=== PATIENT | female | born 1955 | race African-American/Black ===

== ENCOUNTER 2018-05-31 08:51 | Outpatient (CLI) | payer MEDICARE ==
[2018-05-31 09:28] LABS: ALT (SGPT) 14 U/L (8-55); AST (SGOT) 21 U/L (5-34); Alkaline Phosphatase 102 U/L (40-150); Anion Gap 13 mmol/L (10-20); BUN (Urea Nitrogen) 13 mg/dL (9.8-20.1); Bilirubin, Total 0.6 mg/dL (0.2-1.2); Calc. Creatinine Clearance 0 mL/min (70-130); Calcium 9.7 mg/dL (7.8-10.44); Carbon Dioxide 27 mmol/L (23-31); Cardiac Risk 4.1 (Less than 4.5); Chloride 106 mmol/L (98-107); Cholesterol 219 mg/dl (< 200 Desired); Estimated GFR-MDRD Greater than 90; Globulin 3.9 g/dL (2.4-3.5); Glucose 78 mg/dL (80-115); HDL Cholesterol 54 mg/dL (>60 Neg Risk); LDL Cholesterol, Calculated 145 mg/dL; Potassium 3.8 mmol/L (3.5-5.1); Protein, Total 7.9 g/dL (6.0-8.3); Sodium 142 mmol/L (136-145); Triglycerides 101 mg/dL (Less than 150)
[2018-05-31 09:39] LABS: Eosinophils 2 % (0-10); Hemoglobin 13.7 g/dL (12.0-16.0); Lymphocytes 38 % (21-51); MDiff Complete? YES; Mean Corpuscular HGB CONC 31.3 g/dL (32.0-36.0); Mean Corpuscular Hemoglobin 26.6 pg (27.0-31.0); Mean Corpuscular Volume 85.1 fL (78.0-98.0); Mean Platelet Volume 7.7 fL (7.4-10.4); Monocytes 9 % (0-10); Neutrophil 51 % (42-75); PLT Morphology Comment Appears Adequate; Platelet Count 256 thou/uL (130-400); RBC Distribution Width 12.8 % (11.5-14.5); RBC Morphology Normal; Red Blood Cell (RBC) Count 5.16 mill/uL (4.20-5.40); White Blood Cell (WBC) Count 7.2 thou/uL (4.8-10.8)
[2018-05-31 10:02] LABS: Free T4 (Free Thyroxine) 0.87 ng/dL (0.70-1.48); Thyroid Stimulating Hormone 2.2037 uIU/mL (0.35-4.94)
--- NOTE | 2018-05-31 11:29 | RAD ---
3 VIEWS LEFT SHOULDER: Date: 05/31/18 COMPARISON: None. HISTORY: Left shoulder pain for 4 months. FINDINGS: Three views of the left shoulder show no evidence of acute fracture or dislocation. No degenerative c hanges are seen. The left thorax is unremarkable. IMPRESSION: No evidence of acute osseous abnormality of the left shoulder. POS: [facility]
[2018-05-31 11:30] LABS: Hemoglobin A1c 7.9 % (4.0-6.0)
[2018-05-31 12:05] LABS: Creatinine, Urine Less than 20.00 mg/dL (47-110); Microalbumin Urine 1.6 mg/dL (0.5-50.0)
== END 2018-05-31 08:52 | disposition home or self-care (01) ==
LOC: SCSRAD 08:51
PROVIDERS: ATTEND Family Medicine
DX: M25.512 Pain in left shoulder (principal); E11.9 Type 2 diabetes mellitus without complications
CPT/HCPCS: 36415; 80061; 82043; 83036; 84439; 84443

== ENCOUNTER 2018-12-15 11:04 | Outpatient (CLI) | payer MEDICARE ==
--- NOTE | 2018-12-15 11:27 | RAD ---
EXAM: 4 views of the right elbow HISTORY: Elbow pain COMPARISON: None FINDINGS: No elbow effusion is seen. There is no evidence of acute fracture or dislocation. No signif icant degenerative changes are seen. No soft tissue swelling is present. IMPRESSION: No evidence of acute osseous abnormality.
[2018-12-15 11:28] LABS: Bilirubin Negative (Negative); Blood, Urine Negative (Negative); Glucose, Urine (Dipstick) >=1000 mg/dL (Negative); Leukocyte Negative (Negative); Nitrite Negative (Negative); Protein, Urine (Dipstick) 100 mg/dL (Neg-Trace); Specific Gravity, Urine 1.015 (1.005-1.030)
[2018-12-15 11:30] LABS: Clarity Slightly Cloudy (Clear)
[2018-12-15 11:35] LABS: ALT (SGPT) 13 U/L (8-55); AST (SGOT) 16 U/L (5-34); Albumin 3.7 g/dL (3.4-4.8); Alkaline Phosphatase 101 U/L (40-150); Anion Gap 10 mmol/L (10-20); BUN (Urea Nitrogen) 9 mg/dL (9.8-20.1); Bilirubin, Total 0.4 mg/dL (0.2-1.2); Calc. Creatinine Clearance 0 mL/min (70-130); Calcium 9.7 mg/dL (7.8-10.44); Carbon Dioxide 28 mmol/L (23-31); Chloride 104 mmol/L (98-107); Cholesterol 189 mg/dl (< 200 Desired); Estimated GFR-MDRD 82; Globulin 3.6 g/dL (2.4-3.5); Glucose 332 mg/dL (80-115); HDL Cholesterol 47 mg/dL (>60 Neg Risk); LDL Cholesterol, Calculated 125 mg/dL; Potassium 3.8 mmol/L (3.5-5.1); Protein, Total 7.3 g/dL (6.0-8.3); Sodium 138 mmol/L (136-145); Triglycerides 86 mg/dL (Less than 150)
[2018-12-15 11:37] LABS: Bacteria/HPF Rare-Few HPF (None Seen); RBC/HPF 0-3 HPF (0-3); Squamous Epithelial 0-3 HPF (0-3); WBC/HPF 0-3 HPF (0-3)
[2018-12-15 16:49] LABS: Hemoglobin A1c 11.2 % (4.0-6.0)
== END 2018-12-15 11:05 | disposition home or self-care (01) ==
LOC: SCSRAD 11:04
PROVIDERS: ATTEND Family Medicine
DX: M25.521 Pain in right elbow (principal); R30.0 Dysuria; E11.9 Type 2 diabetes mellitus without complications
CPT/HCPCS: 36415; 80053; 80061; 81001; 83036; 87086

== ENCOUNTER 2022-05-01 13:25 | Outpatient (CLI) | payer OTHER | END 2022-05-01 13:26 | disposition home or self-care (01) | LOC: ULT 13:25 | PROVIDERS: ATTEND Family Medicine | DX: R68.89 Other general symptoms and signs (principal) | CPT/HCPCS: 93923 ==